=== PATIENT | male | born 1990 | race Hispanic/Latino ===

== ENCOUNTER 2023-12-17 12:29 | Emergency (ER) | payer SELFPAY ==
[2023-12-17 12:32] VITALS: BP 137/94; BMI 31.9
[2023-12-17 12:50] LABS: % Basophils 0.7 % (0-2); % Eosinophils 1.9 % (0-6); % Immature Granulocytes 0.6 % (0-0.5); % Lymphocytes 32.6 % (20.5-51.1); % Monocytes 7.3 % (1.7-9.3); % Neutrophils 56.9 % (42.2-75.2); Absolute Basophils 0.1 10^3/uL (0-0.2); Absolute Eosinophils 0.2 10^3/uL (0-0.7); Absolute Immature Granulocytes 0.1 10^3/uL (0-0.05); Absolute Lymphocytes 2.8 10^3/uL (1.2-3.4); Absolute Monocytes 0.6 10^3/uL (0.1-0.6); Absolute Neutrophils 4.8 10^3/uL (1.4-6.5); Hematocrit 43.1 % (39.0-52.0); Hemoglobin 15.2 g/dL (13.0-18.0); Mean Corp Hgb Conc. 35.3 g/dL (33.0-37.0); Mean Corpuscular Hgb 28.2 pg (27.0-31.0); Mean Platelet Volume 10.5 fL (7.4-10.4); Nucleated Red Blood Cells % 0 % (-); Platelet Count 203 10^3/uL (130-400); Red Blood Cell Count 5.39 10^6/uL (4.70-6.10); Red Cell Dist. Width 12.6 % (11.5-14.5); White Blood Cell Count 8.5 10^3/uL (4.8-10.8)
[2023-12-17 13:00] VITALS: BP 119/78
[2023-12-17 13:09] LABS: Troponin I < 0.012 ng/ml
--- NOTE | 2023-12-17 13:37 | ED.GENMED ---
History of Present Illness
General
Chief Complaint: Breathing Problem
Source: patient and ambulance crew
Time Seen by Provider: 12/17/23 13:19
Travel History
Have you had any contact with someone who has COVID-19?: No
Do you have any symptoms of coronavirus? Fever > 100 degrees, chills, cough, shortness of breath, sore throat, loss of taste or smell, muscle aches, or headache?: Yes
Symptoms:: see note
History of Present Illness
History of Present Illness:
33-year-old male with no significant past medical history presenting to the emergency department for evaluation after he started to feel acutely short of breath while outside prior to arrival. Patient states he had a similar episode yesterday but
that the symptoms got better within a minute or 2 but today symptoms seem to last a little bit longer. Patient states he felt as if his throat were closing or having a hard time. He also states he felt some tingling to his bilateral hands.
Patient states on arrival to the emergency department he reports symptoms seem to be mostly resolved however still has very slight shortness of breath. Patient states he was in his usual morning routine and did not do anything out of the ordinary,
no different foods or ingestions, medications or any other concerns. Denies any history of similar.
Past History
Past History
ED Past Medical History: None
ED Past Surgical History: None
Social History
Tobacco: Non-smoker
Alcohol: None
Drug: None
Living: with family
Review of Systems
Review of Systems
All Other Systems: ROS reviewed and negative except as documented in HPI and ROS
Phy Exam
Physical Exam
Physical Exam:
GENERAL: Alert , in no apparent distress
EYE: conjunctiva clear
NECK: Supple
ENT: o/p clr, mmm.
CARDIAC: Regular rate and rhythm
LUNGS: Clear breath sounds bilaterally, no acute respiratory distress, no wheezes/rales/rhonchi
NEUROLOGICAL: Alert and oriented
SKIN: Warm and dry, skin intact.
MUSCULOSKELETAL: well perfused.
PSYCH: Normal and appropriate interaction.
Course
Orders/Labs/Results
Orders:
Orders
12/17/23 12:38
Electrocardiogram (*1) Urgent
Reason for Study: Shortness of Breath
EKG- Treatment ONCE
12/17/23 12:39
Complete Blood Count/With Diff Urgent
Comprehensive Metabolic Panel Urgent
Troponin I Urgent
12/17/23 13:31
0.9% Sodium Chloride 1000 ml [Nss] 1,000 ml IV BOLUS
12/17/23 13:32
CR Chest - 2 Views Urgent
Comment:
Reason For Exam: SOB
Abnormal Lab Results
12/17/23
12:39
MPV 10.5 H fL
(7.4-10.4)
Abs Immat Gran (auto) 0.1 H 10^3/uL
(0-0.05)
Immature Gran % 0.6 H %
(0-0.5)
Potassium 3.3 L mmol/L
(3.5-5.1)
Carbon Dioxide 19 L mmol/L
(22-30)
Glucose 130 H mg/dl
(70-99)
12/17/23 12:39
12/17/23 12:39
Vital Signs
Initial and Last Documented VS:
Initial Vital Signs
Temp Pulse Resp BP Pulse Ox
98.6 F 90 20 137/94 100
12/17/23 12:32 12/17/23 12:32 12/17/23 12:32 12/17/23 12:32 12/17/23 12:32
Last Documented Vital Signs
Temp Pulse Resp BP Pulse Ox
98.6 F 90 20 137/94 99
12/17/23 12:32 12/17/23 12:32 12/17/23 12:32 12/17/23 12:32 12/17/23 13:32
MDM/Problems Addressed
Differential Diagnosis Includes:
Allergic reaction, anxiety, less concern for infectious etiology, electrolyte disturbance
MDM/Problems Addressed:
33-year-old male presenting emergency department for evaluation of shortness of breath accompanied with sensation of throat closing and tingling to the bilateral hands. Patient reports feeling better upon arrival to the emergency department. He is
in no acute distress and hemodynamic. Heart rate around 88 bpm, respirations normal and pulse ox is persistently between 98 and 100% on room air. Lungs clear to auscultation. Patient without cough, chest pain, hemoptysis and has no risk factors
for PE and I am not suspicious of this as a diagnosis. Will obtain chest x-ray. Treat with IV fluids and reassessment following.
*Radiology
Radiology exam reviewed: preliminary read by ED provider (Normal chest x-ray)
*Pulse Oximetry
Patient hypoxic: no
*[employer] Interpretation
Rate: normal
Rhythm: sinus
*Critical Care Note
Total Time (30-74mins, 75-104mins- exclusive of procedures): Not Applicable
Patient Management
Escalation/DeEscalation of care consider admission/obs:
Patient remains without any acute respiratory complications. Oxygen saturation remains 100% on room air. Chest x-ray unremarkable. EKG nonischemic. Patient without any risk factors for any significant complications. Stable discharge home and
aware of return cautions.
ED Attending Note
-
Portions of this chart may have been created with voice recognition software.� Occasional wrong word or��sound alike� substitutions may have occurred due to the inherent limitations of voice recognition software.
Discharge Plan
Departure
Patient Disposition: Home (Routine Discharge)
Date of Disposition: 12/17/23
Time of Disposition: 14:38
Patient with high blood pressure during this ER visit?: Yes
Discharge Problem:
Shortness of breath
Instructions: Shortness of Breath (Dyspnea) (DC)
Referrals:
UNKNOWN - PT DOES,NOT KNOW [Family Provider] -
Interventions
Interventions:
*Risk Screen - Suicide Last Done: 12/17/23 13:33
*General Assessment Last Done: 12/17/23 13:33
*Neglect/Abuse Screening Last Done: 12/17/23 13:33
*ED COVID-19 Vaccine History Last Done: 12/17/23 13:33
ED- Cardiac Assessment Last Done: 12/17/23 13:32
ED- Pulmonary Assessment Last Done: 12/17/23 13:32
Discharge Date and Time
Print Language: JAPANESE
[2023-12-17 13:39] LABS: ALT (SGPT) 21 U/L (0-50); AST (SGOT) 25 U/L (17-59); Albumin 4.3 g/dl (3.5-5.0); Alkaline Phosphatase 84 U/L (38-126); Blood Urea Nitrogen 10 mg/dl (9-20); Calcium 9.3 mg/dl (8.4-10.2); Carbon Dioxide 19 mmol/L (22-30); Chloride 103 mmol/L (98-107); Estimated Creatinine Clearance > 125 ml/min; Glucose 130 mg/dl (70-99); Potassium 3.3 mmol/L (3.5-5.1); Sodium 135 mmol/L (135-145); Total Bilirubin 0.6 mg/dl (0.2-1.3); Total Protein 6.8 g/dl (6.3-8.2); eGFR > 60.00
[2023-12-17 13:56] VITALS: BP 126/68
[2023-12-17] MEDS: NSS 1000 IV (13:57)
[2023-12-17 14:00] VITALS: BP 123/73
[2023-12-17 15:00] VITALS: BP 126/72
== END 2023-12-17 15:37 | disposition home or self-care (01) ==
LOC: EMR 12:29
PROVIDERS: Emergency Medicine; EMERGENCY PHYSICIAN Emergency Medicine
DX: R06.02 Shortness of breath (principal)
CPT/HCPCS: 99283; 96360; 71046; 80053; 84484; 85025; 93005